=== PATIENT | female | born 1985 | race Caucasian/White ===

== ENCOUNTER 2024-10-18 15:39 | Outpatient (CLI) | payer SELFPAY ==
[2024-10-18 11:29] LABS: Abs Immature Grans 0.02 10^3/uL (0.0-0.06); HCT 26.4 % (36.0-46.0); HGB 7.5 g/dL (11.2-15.7); Immature Grans % 0.2 %; MCH 18.0 pg (27.0-33.0); MCHC 28.4 % (32.0-36.0); MCV 64 fL (80-95); MPV 8.8 fL (8.0-11.0); Platelet Count 513 10^3/uL (130-400); RBC 4.16 10^6/uL (3.93-5.22); RDW 15.8 % (11.7-14.6); RDW-SD 35.6 fL; WBC 8.56 10^3/uL (4.4-10.8)
[2024-10-18 11:44] LABS: Hypochromasia 2+; Microcytosis 2+
== END 2024-10-18 15:40 | disposition home or self-care (01) ==
LOC: LBO 15:40
PROVIDERS: PCP Internal Medicine Medical Oncology; Visit Provider Internal Medicine Medical Oncology
DX: C50.412 Malignant neoplasm of upper-outer quadrant of left female breast (principal); Z17.0 Estrogen receptor positive status [ER+]; R53.82 Chronic fatigue, unspecified; D63.0 Anemia in neoplastic disease
CPT/HCPCS: 36415; 86850; 86900; 86901; 85025